=== PATIENT | female | born 1940 | race Two or more races ===

== ENCOUNTER 2021-06-22 00:17 | Inpatient (IN) | payer OTHER ==
[~2021-06-22] VITALS: Ht 162.6 cm; Wt 55.3 kg
[~2021-06-22 00:17] MED LIST: DRAMAMINE LESS25 MG; HYDRALAZINE HCL25 MG PO; HYDRALAZINE HCL50 MG; ISOSORBIDE DINI30 MG PO; MECLIZINE HCL25 MG PO; METOPROLOL ER-1 EAC1; NORVASC2.5 M1; TOPROL XL50 M1; TOPROL XL50 M1 PO
[2021-06-22] MEDS ORDERED: HYDROCHLOROTH12.5 MG (00:30)
[2021-06-22] MEDS ORDERED: AMLODIPINE BESY10 MG (15:30)
[2021-06-22] MEDS ORDERED: ATORVASTATIN CA40 MG (15:30)
[2021-06-22] MEDS ORDERED: ST. JOSEPH ASPI81 M2 (15:30)
== END 2021-06-30 17:23 | disposition home or self-care (01) | DRG 280 ==
LOC: ER 00:17 → MEDI 08:31 → SEC-K 08:31 → MEDI 10:52
PROVIDERS: ADMIT Internal Medicine; ATTEND Internal Medicine
PROC: 4A12X4Z Monitoring of Cardiac Electrical Activity, External Approach (ICD-10-PCS; principal; 2021-06-22)
PROC: B24BZZZ Ultrasonography of Heart with Aorta (ICD-10-PCS; 2021-06-23)
DX: I13.2 Hypertensive heart and chronic kidney disease with heart failure and with stage 5 chronic kidney disease, or end stage renal disease (principal); I50.23 Acute on chronic systolic (congestive) heart failure; I21.4 Non-ST elevation (NSTEMI) myocardial infarction; N18.5 Chronic kidney disease, stage 5; N17.8 Other acute kidney failure; I16.9 Hypertensive crisis, unspecified; R09.02 Hypoxemia; R06.02 Shortness of breath; I12.0 Hypertensive chronic kidney disease with stage 5 chronic kidney disease or end stage renal disease; D63.1 Anemia in chronic kidney disease; R79.89 Other specified abnormal findings of blood chemistry; I25.10 Atherosclerotic heart disease of native coronary artery without angina pectoris; Z20.822 Contact with and (suspected) exposure to COVID-19

== ENCOUNTER 2021-07-07 15:51 | Inpatient (IN) | payer OTHER ==
[~2021-07-07] VITALS: Ht 152.4 cm; Wt 47.6 kg
[~2021-07-07 15:51] MED LIST changes: +AMLODIPINE BESY10 MG; +ATORVASTATIN CA40 MG; +HYDROCHLOROTH12.5 MG; +ST. JOSEPH ASPI81 M2
== END 2021-07-29 12:14 | disposition home or self-care (01) | DRG 280 ==
LOC: ER 15:51 → MEDI 20:49 → MEDJ 20:49 → MEDI 07-08 09:43 → MEDJ 07-17 14:09
PROVIDERS: Radiology Vascular & Interventional Radiology; ADMIT Internal Medicine; ATTEND Internal Medicine
PROC: BW28ZZZ Computerized Tomography (CT Scan) of Head (ICD-10-PCS; 2021-07-07)
PROC: 4A12X4Z Monitoring of Cardiac Electrical Activity, External Approach (ICD-10-PCS; 2021-07-08)
PROC: 05HM33Z Insertion of Infusion Device into Right Internal Jugular Vein, Percutaneous Approach (ICD-10-PCS; principal; 2021-07-11 17:00)
PROC: B54PZZZ Ultrasonography of Bilateral Upper Extremity Veins (ICD-10-PCS; 2021-07-12)
PROC: 5A1D70Z Performance of Urinary Filtration, Intermittent, Less than 6 Hours Per Day (ICD-10-PCS; 2021-07-17)
PROC: 5A1D70Z Performance of Urinary Filtration, Intermittent, Less than 6 Hours Per Day (ICD-10-PCS; 2021-07-19)
PROC: 02HV33Z Insertion of Infusion Device into Superior Vena Cava, Percutaneous Approach (ICD-10-PCS; 2021-07-19)
PROC: BW24ZZZ Computerized Tomography (CT Scan) of Chest and Abdomen (ICD-10-PCS; 2021-07-19)
PROC: 30233N1 Transfusion of Nonautologous Red Blood Cells into Peripheral Vein, Percutaneous Approach (ICD-10-PCS; 2021-07-21)
PROC: 0W9B3ZX Drainage of Left Pleural Cavity, Percutaneous Approach, Diagnostic (ICD-10-PCS; 2021-07-24)
PROC: 0W993ZX Drainage of Right Pleural Cavity, Percutaneous Approach, Diagnostic (ICD-10-PCS; 2021-07-28)
PROC: 5A1D70Z Performance of Urinary Filtration, Intermittent, Less than 6 Hours Per Day (ICD-10-PCS; 2021-07-29)
DX: I11.0 Hypertensive heart disease with heart failure (principal); I50.23 Acute on chronic systolic (congestive) heart failure; I21.4 Non-ST elevation (NSTEMI) myocardial infarction; N18.6 End stage renal disease; J90 Pleural effusion, not elsewhere classified; J81.1 Chronic pulmonary edema; I25.5 Ischemic cardiomyopathy; R09.02 Hypoxemia; R06.02 Shortness of breath; R10.13 Epigastric pain; K59.09 Other constipation; I12.0 Hypertensive chronic kidney disease with stage 5 chronic kidney disease or end stage renal disease; D63.1 Anemia in chronic kidney disease; E11.22 Type 2 diabetes mellitus with diabetic chronic kidney disease; Z99.2 Dependence on renal dialysis; Z79.4 Long term (current) use of insulin; I25.10 Atherosclerotic heart disease of native coronary artery without angina pectoris; Z20.822 Contact with and (suspected) exposure to COVID-19; F03.90 Unspecified dementia, unspecified severity, without behavioral disturbance, psychotic disturbance, mood disturbance, and anxiety

== ENCOUNTER 2023-01-04 14:01 | Inpatient (IN) | payer OTHER ==
[~2023-01-04] VITALS: Ht 152.4 cm; Wt 49.9 kg
[2023-01-04 15:49] LABS: HEMATOCRIT 32.4 % (36.0-45.00); HEMOGLOBIN 10.4 g/dL (12.0-15.00); MEAN CELL VOLUME 95.4 fL (80.00-100.00); MEAN CORPUSCULAR HEMOGLOBIN 30.8 pg (27.00-32.0); MEAN CORPUSCULAR HGB CONC 32.3 g/dl (32.0-36.0); PLATELET COUNT 158 K/uL (150-450); RED BLOOD COUNT 3.39 M/uL (4.00-6.00); RED CELL DISTRIBUTION WIDTH 18.4 % (11.5-14.5)
[2023-01-04 16:16] LABS: ALBUMIN 3.5 gm/dL (3.4-5.0); BILIRUBIN TOTAL 0.47 mg/dL (0.3-1.2); CALCIUM 8.8 mg/dL (8.5-10.1); GFR 4.87; GLOBULINA 3.5 G/DL (2.4-3.5); POTASSIUM 4.06 mEq/L (3.5-5.1)
[2023-01-04 16:30] LABS: CREATININE SERUM 7.93 mg/dL (0.55-1.02)
[2023-01-05 08:39] LABS: URINE APPEARANCE CLOUDY; URINE BILIRRUBIN SMALL (NEGATIVE); URINE COLOR RED; URINE GLUCOSE NEGATIVE (NEGATIVE)
[2023-01-05 08:40] LABS: PH,URINE 5.5 (5.0-8.0); URINE BLOOD LARGE; URINE LEUKOCYTE MODERATE; URINE NITRATE NEGATIVE; URINE PROTEIN 300 (NEGATIVE); URINE RBC > 10558.9 uL (0.0-20.8); URINE UROBILINOGEN 0.2 E.U./dl
[2023-01-05 08:41] LABS: URINE BACTERIA 18.31 uL (0.0-1933)
[2023-01-06 13:53] LABS: ALBUMIN 2.9 gm/dL (3.4-5.0); BILIRUBIN TOTAL 0.62 mg/dL (0.3-1.2); BILIRUBIN,CONJUGATED 0.27 mg/dL (0.0-0.2); BILIRUBIN,UNCONJUGATED 0.35 mg/dL (0.0-0.6); CALCIUM 9.1 mg/dL (8.5-10.1); GLOBULINA 3.3 G/DL (2.4-3.5); POTASSIUM 5.08 mEq/L (3.5-5.1); TOTAL PROTEIN 6.2 gm/dL (6.4-8.2)
[2023-01-06 14:06] LABS: CHOL HDL RATIO 12.1 (0-5.0); GFR 5.97
[2023-01-06 14:07] LABS: CREATININE SERUM 6.64 mg/dL (0.55-1.02)
[2023-01-06 14:13] LABS: HEMATOCRIT 30.3 % (36.0-45.00); HEMOGLOBIN 9.9 g/dL (12.0-15.00); MEAN CELL VOLUME 94.9 fL (80.00-100.00); MEAN CORPUSCULAR HEMOGLOBIN 31.1 pg (27.00-32.0); MEAN CORPUSCULAR HGB CONC 32.8 g/dl (32.0-36.0); RED BLOOD COUNT 3.19 M/uL (4.00-6.00)
[2023-01-06 14:22] LABS: ERYTHROCYTE SEDIMENTATION RATE 87 mm/hr
[2023-01-06 14:24] LABS: INR 1.42; PROTHROMBIN TIME 14.5 SECONDS (9.0-11.5)
[2023-01-06 14:25] LABS: C-REACTIVE PROTEIN 22.2 MG/DL (0.00-0.29)
[2023-01-06 14:29] LABS: PARTIAL THROMBOPLASTIN TIME 43.9 SECONDS (22.0-34.0)
[2023-01-06 15:01] LABS: PLATELET COUNT 97 K/uL (150-450)
[2023-01-07] MEDS ORDERED: FUROSEMIDE40 MG (10:26)
[2023-01-07 14:50] LABS: ABG PH 7.454 (7.35-7.45); ABG PO2 67.7 mmHg (80-100); ABG pCO2 32.8 mmHg (35-45); BASE EXCESS -0.5 mmol/l; BICARBONATE 22.5 mmol/l (23-25); SaO2 94.2 %; Tco2 23.5 mmol/l
[2023-01-07 14:51] LABS: allen test SATISFACTORY; o2 100 %; puncture site RADIAL RIGHT
[2023-01-07 23:24] LABS: ABG PH 7.453 (7.35-7.45); ABG PO2 71.1 mmHg (80-100); ABG pCO2 30.2 mmHg (35-45)
[2023-01-07 23:25] LABS: BASE EXCESS -2.1 mmol/l; BICARBONATE 20.6 mmol/l (23-25); SaO2 94.8 %; Tco2 21.6 mmol/l; allen test SATISFACTORY; o2 36 %; puncture site RADIAL RIGHT
[2023-01-08 11:10] LABS: HEMATOCRIT 29.4 % (36.0-45.00); HEMOGLOBIN 9.5 g/dL (12.0-15.00); MEAN CELL VOLUME 93.7 fL (80.00-100.00); MEAN CORPUSCULAR HEMOGLOBIN 30.3 pg (27.00-32.0); MEAN CORPUSCULAR HGB CONC 32.3 g/dl (32.0-36.0); RED BLOOD COUNT 3.14 M/uL (4.00-6.00); RED CELL DISTRIBUTION WIDTH 18.3 % (11.5-14.5)
[2023-01-08 11:59] LABS: PLATELET COUNT 56 K/uL (150-450)
[2023-01-08 12:06] LABS: ALBUMIN 2.8 gm/dL (3.4-5.0); BILIRUBIN TOTAL 3.01 mg/dL (0.3-1.2); CALCIUM 8.7 mg/dL (8.5-10.1); GFR 7.94; GLOBULINA 2.9 G/DL (2.4-3.5); POTASSIUM 4.24 mEq/L (3.5-5.1); TOTAL PROTEIN 5.7 gm/dL (6.4-8.2)
[2023-01-08 12:26] LABS: CREATININE SERUM 5.19 mg/dL (0.55-1.02)
[2023-01-09 21:00] LABS: D DIMER 1.71 MG/L; INR 2.1
[2023-01-09 21:02] LABS: PARTIAL THROMBOPLASTIN TIME 48.8 SECONDS (22.0-34.0)
[2023-01-09 21:03] LABS: PROTHROMBIN TIME 20.9 SECONDS (9.0-11.5)
[2023-01-10 06:14] LABS: HEMATOCRIT 26.4 % (36.0-45.00); MEAN CELL VOLUME 91.7 fL (80.00-100.00); MEAN CORPUSCULAR HGB CONC 33.3 g/dl (32.0-36.0); RED BLOOD COUNT 2.88 M/uL (4.00-6.00); RED CELL DISTRIBUTION WIDTH 18.1 % (11.5-14.5)
[2023-01-10 06:53] LABS: ALBUMIN 2.5 gm/dL (3.4-5.0); CALCIUM 8.8 mg/dL (8.5-10.1); CREATININE SERUM 3.76 mg/dL (0.55-1.02); GFR 11.51; PHOSPHOROUS 5.7 mg/dL (2.5-4.9); POTASSIUM 4.05 mEq/L (3.5-5.1)
[2023-01-10 08:09] LABS: MEAN CORPUSCULAR HEMOGLOBIN 30.5 pg (27.00-32.0)
[2023-01-10 08:11] LABS: HEMOGLOBIN 8.8 g/dL (12.0-15.00)
[2023-01-10 08:13] LABS: PLATELET COUNT 41 K/uL (150-450)
[2023-01-11 20:55] LABS: HEMATOCRIT 38.2 % (36.0-45.00); HEMOGLOBIN 13.2 g/dL (12.0-15.00); MEAN CELL VOLUME 90.5 fL (80.00-100.00); MEAN CORPUSCULAR HEMOGLOBIN 31.2 pg (27.00-32.0); MEAN CORPUSCULAR HGB CONC 34.5 g/dl (32.0-36.0); RED BLOOD COUNT 4.22 M/uL (4.00-6.00); RED CELL DISTRIBUTION WIDTH 16.7 % (11.5-14.5)
[2023-01-11 20:58] LABS: PLATELET COUNT 65 K/uL (150-450)
[2023-01-12 11:22] LABS: ABG PH 7.335 (7.35-7.45); ABG PO2 116.7 mmHg (80-100)
[2023-01-12 11:23] LABS: BASE EXCESS -3.4 mmol/l; BICARBONATE 22.4 mmol/l (23-25); SaO2 98.1 %; Tco2 23.7 mmol/l
[2023-01-12 11:31] LABS: allen test SATISFACTORY; o2 50 %; puncture site RADIAL RIGHT
[2023-01-13 10:02] LABS: HEMATOCRIT 34.9 % (36.0-45.00); HEMOGLOBIN 11.9 g/dL (12.0-15.00); MEAN CELL VOLUME 88.6 fL (80.00-100.00); MEAN CORPUSCULAR HEMOGLOBIN 30.3 pg (27.00-32.0); MEAN CORPUSCULAR HGB CONC 34.2 g/dl (32.0-36.0); RED BLOOD COUNT 3.94 M/uL (4.00-6.00); RED CELL DISTRIBUTION WIDTH 17.8 % (11.5-14.5)
[2023-01-13 10:05] LABS: PLATELET COUNT 63 K/uL (150-450)
[2023-01-13 10:41] LABS: ALBUMIN 2.4 gm/dL (3.4-5.0); BILIRUBIN TOTAL 6.47 mg/dL (0.3-1.2); CALCIUM 9.1 mg/dL (8.5-10.1); GFR 8.54; GLOBULINA 2.8 G/DL (2.4-3.5); POTASSIUM 4.61 mEq/L (3.5-5.1); TOTAL PROTEIN 5.2 gm/dL (6.4-8.2)
[2023-01-13 10:44] LABS: CREATININE SERUM 4.87 mg/dL (0.55-1.02)
[2023-01-13 15:20] LABS: ABG PH 7.343 (7.35-7.45); ABG PO2 93.6 mmHg (80-100); BASE EXCESS -5.8 mmol/l; BICARBONATE 19.1 mmol/l (23-25); SaO2 96.5 %; Tco2 20.2 mmol/l; o2 50 %
[2023-01-13 15:21] LABS: allen test SATISFACTORY; puncture site RADIAL RIGHT
[2023-01-14 03:36] LABS: INR 1.8
[2023-01-14 04:13] LABS: PARTIAL THROMBOPLASTIN TIME 38.2 SECONDS (22.0-34.0); PROTHROMBIN TIME 18.1 SECONDS (9.0-11.5)
[2023-01-16 06:26] LABS: HEMOGLOBIN 12.9 g/dL (12.0-15.00); MEAN CELL VOLUME 91.6 fL (80.00-100.00); MEAN CORPUSCULAR HEMOGLOBIN 31.1 pg (27.00-32.0); RED BLOOD COUNT 4.15 M/uL (4.00-6.00); RED CELL DISTRIBUTION WIDTH 17.7 % (11.5-14.5)
[2023-01-16 06:58] LABS: ALBUMIN 2.3 gm/dL (3.4-5.0); BILIRUBIN TOTAL 5.77 mg/dL (0.3-1.2); CALCIUM 8.3 mg/dL (8.5-10.1); GFR 8.44; GLOBULINA 2.9 G/DL (2.4-3.5); POTASSIUM 5.5 mEq/L (3.5-5.1); TOTAL PROTEIN 5.2 gm/dL (6.4-8.2)
[2023-01-16 07:35] LABS: PLATELET COUNT 109 K/uL (150-450)
[2023-01-16 07:45] LABS: CREATININE SERUM 4.92 mg/dL (0.55-1.02)
[2023-01-18 20:23] LABS: ABG PO2 67.5 mmHg (80-100); ABG pCO2 35.4 mmHg (35-45); BICARBONATE 21.9 mmol/l (23-25); SaO2 93.2 %
[2023-01-18 20:24] LABS: allen test SATISFACTORY; o2 21 %; puncture site RADIAL RIGHT
[2023-01-20 09:16] LABS: ALBUMIN 1.6 gm/dL (3.4-5.0); BILIRUBIN TOTAL 3.86 mg/dL (0.3-1.2); GLOBULINA 2.7 G/DL (2.4-3.5); TOTAL PROTEIN 4.3 gm/dL (6.4-8.2)
[2023-01-20 09:46] LABS: CREATININE SERUM 4.82 mg/dL (0.55-1.02); GFR 8.64
[2023-01-20 09:47] LABS: POTASSIUM 6.01 mEq/L (3.5-5.1)
[2023-01-20 10:08] LABS: HEMATOCRIT 39.6 % (36.0-45.00); HEMOGLOBIN 13.3 g/dL (12.0-15.00); MEAN CELL VOLUME 93.4 fL (80.00-100.00); MEAN CORPUSCULAR HEMOGLOBIN 31.3 pg (27.00-32.0); MEAN CORPUSCULAR HGB CONC 33.6 g/dl (32.0-36.0); RED BLOOD COUNT 4.24 M/uL (4.00-6.00); RED CELL DISTRIBUTION WIDTH 19.8 % (11.5-14.5)
[2023-01-20 10:17] LABS: PLATELET COUNT 30 K/uL (150-450)
[2023-01-20 14:41] LABS: ALBUMIN 1.8 gm/dL (3.4-5.0); BILIRUBIN TOTAL 4.14 mg/dL (0.3-1.2); CALCIUM 8.1 mg/dL (8.5-10.1); GFR 8.64; GLOBULINA 2.8 G/DL (2.4-3.5); POTASSIUM 5.89 mEq/L (3.5-5.1); TOTAL PROTEIN 4.6 gm/dL (6.4-8.2)
[2023-01-20 15:15] LABS: CREATININE SERUM 4.82 mg/dL (0.55-1.02)
[2023-01-21 07:15] LABS: ALBUMIN 1.9 gm/dL (3.4-5.0); BILIRUBIN TOTAL 4.39 mg/dL (0.3-1.2); CALCIUM 8.1 mg/dL (8.5-10.1); GLOBULINA 2.9 G/DL (2.4-3.5); TOTAL PROTEIN 4.8 gm/dL (6.4-8.2)
[2023-01-21 07:27] LABS: HEMATOCRIT 40.1 % (36.0-45.00); HEMOGLOBIN 13.5 g/dL (12.0-15.00); MEAN CELL VOLUME 94.7 fL (80.00-100.00); MEAN CORPUSCULAR HEMOGLOBIN 31.9 pg (27.00-32.0); MEAN CORPUSCULAR HGB CONC 33.7 g/dl (32.0-36.0); RED BLOOD COUNT 4.24 M/uL (4.00-6.00); RED CELL DISTRIBUTION WIDTH 20.9 % (11.5-14.5)
[2023-01-21 07:43] LABS: ERYTHROCYTE SEDIMENTATION RATE 45 mm/hr
[2023-01-21 08:21] LABS: D DIMER 1.79 MG/L
[2023-01-21 09:14] LABS: PLATELET COUNT 40 K/uL (150-450)
[2023-01-21 09:22] LABS: GFR 7.42
[2023-01-21 09:24] LABS: CREATININE SERUM 5.5 mg/dL (0.55-1.02); POTASSIUM 6.59 mEq/L (3.5-5.1)
[2023-01-21 09:38] LABS: C-REACTIVE PROTEIN 12.4 MG/DL (0.00-0.29)
[2023-01-22 07:11] LABS: ALBUMIN 1.7 gm/dL (3.4-5.0); CALCIUM 7.9 mg/dL (8.5-10.1); GFR 8.56; PHOSPHOROUS 6.6 mg/dL (2.5-4.9); POTASSIUM 5.31 mEq/L (3.5-5.1)
[2023-01-22 08:50] LABS: CREATININE SERUM 4.86 mg/dL (0.55-1.02)
[2023-01-22 15:05] LABS: URINE BLOOD LARGE; URINE LEUKOCYTE SMALL; URINE NITRATE POSITIVE
[2023-01-22 15:06] LABS: URINE APPEARANCE BLOODY; URINE BILIRRUBIN LARGE (NEGATIVE); URINE COLOR RED; URINE GLUCOSE 100 MG/DL (NEGATIVE); URINE PROTEIN >=300 (NEGATIVE)
[2023-01-22 15:08] LABS: URINE RBC LOADED /HPF
[2023-01-22 15:09] LABS: URINE BACTERIA MANY; URINE CRYSTALS NEGATIVE /HPF; URINE MUCUS SCANT
[2023-01-23 12:31] LABS: HEMATOCRIT 38.6 % (36.0-45.00); HEMOGLOBIN 12.7 g/dL (12.0-15.00); MEAN CELL VOLUME 94.1 fL (80.00-100.00); MEAN CORPUSCULAR HGB CONC 32.9 g/dl (32.0-36.0); RED CELL DISTRIBUTION WIDTH 20.6 % (11.5-14.5)
[2023-01-23 12:58] LABS: ALBUMIN 1.7 gm/dL (3.4-5.0); BILIRUBIN TOTAL 3.06 mg/dL (0.3-1.2); GLOBULINA 2.6 G/DL (2.4-3.5); TOTAL PROTEIN 4.3 gm/dL (6.4-8.2)
[2023-01-23 13:23] LABS: PLATELET COUNT 73 K/uL (150-450)
[2023-01-23 13:29] LABS: GFR 7.44
[2023-01-23 13:31] LABS: CREATININE SERUM 5.49 mg/dL (0.55-1.02); POTASSIUM 6.2 mEq/L (3.5-5.1)
[2023-01-26 14:08] LABS: HEMATOCRIT 38.1 % (36.0-45.00); HEMOGLOBIN 12.2 g/dL (12.0-15.00); MEAN CELL VOLUME 95.2 fL (80.00-100.00); MEAN CORPUSCULAR HEMOGLOBIN 30.5 pg (27.00-32.0); RED BLOOD COUNT 4.01 M/uL (4.00-6.00)
[2023-01-26 14:19] LABS: PLATELET COUNT 76 K/uL (150-450)
[2023-01-26 14:20] LABS: ALBUMIN 1.5 gm/dL (3.4-5.0); BILIRUBIN TOTAL 2.71 mg/dL (0.3-1.2); BILIRUBIN,CONJUGATED 2.01 mg/dL (0.0-0.2); BILIRUBIN,UNCONJUGATED 0.7 mg/dL (0.0-0.6); CALCIUM 7.7 mg/dL (8.5-10.1); GFR 7.78; GLOBULINA 2.5 G/DL (2.4-3.5); POTASSIUM 5.11 mEq/L (3.5-5.1)
[2023-01-26 14:46] LABS: CREATININE SERUM 5.28 mg/dL (0.55-1.02)
[2023-01-27 11:19] LABS: ABG PH 7.288 (7.35-7.45); ABG PO2 88.1 mmHg (80-100); ABG pCO2 27.9 mmHg (35-45); SaO2 94.9 %
[2023-01-27 11:20] LABS: BASE EXCESS -11.9 mmol/l; Tco2 13.9 mmol/l; allen test SATISFACTORY; o2 100 %; puncture site RADIAL RIGHT
[2023-01-27 14:14] LABS: ABG PH 7.269 (7.35-7.45); ABG pCO2 30.2 mmHg (35-45); BASE EXCESS -11.9 mmol/l; BICARBONATE 13.5 mmol/l (23-25); SaO2 98.9 %; Tco2 14.5 mmol/l
[2023-01-27 14:15] LABS: allen test SATISFACTORY; o2 100 %; puncture site RADIAL RIGHT
== END 2023-01-27 19:42 | disposition expired | DRG 682 ==
LOC: ER 14:01 → MEDI 22:35 → MEDJ 01-05 01:42 → ICU 01-12 14:45 → MEDI 01-16 18:20 → ICU 01-16 18:21 → MEDI 01-16 20:06
PROVIDERS: Emergency Medicine; General Practice; Internal Medicine; Internal Medicine Hematology & Oncology; Internal Medicine Infectious Disease; Specialist; Specialist/Technologist, Other Nephrology; Student in an Organized Health Care Education/Training Program; ADMIT Internal Medicine; ATTEND Internal Medicine
PROC: BW21ZZZ Computerized Tomography (CT Scan) of Abdomen and Pelvis (ICD-10-PCS; 2023-01-04)
PROC: 3E0F7GC Introduction of Other Therapeutic Substance into Respiratory Tract, Via Natural or Artificial Opening (ICD-10-PCS; 2023-01-06)
PROC: 4A12X4Z Monitoring of Cardiac Electrical Activity, External Approach (ICD-10-PCS; 2023-01-07)
PROC: 5A1D70Z Performance of Urinary Filtration, Intermittent, Less than 6 Hours Per Day (ICD-10-PCS; 2023-01-07)
PROC: 5A1D70Z Performance of Urinary Filtration, Intermittent, Less than 6 Hours Per Day (ICD-10-PCS; 2023-01-09)
PROC: B020ZZZ Computerized Tomography (CT Scan) of Brain (ICD-10-PCS; 2023-01-11)
PROC: 30233N1 Transfusion of Nonautologous Red Blood Cells into Peripheral Vein, Percutaneous Approach (ICD-10-PCS; 2023-01-11)
PROC: 5A1D70Z Performance of Urinary Filtration, Intermittent, Less than 6 Hours Per Day (ICD-10-PCS; 2023-01-11)
PROC: 0D9670Z Drainage of Stomach with Drainage Device, Via Natural or Artificial Opening (ICD-10-PCS; principal; 2023-01-13)
PROC: 3E0G76Z Introduction of Nutritional Substance into Upper GI, Via Natural or Artificial Opening (ICD-10-PCS; 2023-01-13)
PROC: B24BYZZ Ultrasonography of Heart with Aorta using Other Contrast (ICD-10-PCS; 2023-01-13)
PROC: 5A1D70Z Performance of Urinary Filtration, Intermittent, Less than 6 Hours Per Day (ICD-10-PCS; 2023-01-16)
PROC: 5A1D70Z Performance of Urinary Filtration, Intermittent, Less than 6 Hours Per Day (ICD-10-PCS; 2023-01-18)
PROC: 5A1D70Z Performance of Urinary Filtration, Intermittent, Less than 6 Hours Per Day (ICD-10-PCS; 2023-01-23)
PROC: BW40ZZZ Ultrasonography of Abdomen (ICD-10-PCS; 2023-01-26)
PROC: 5A12012 Performance of Cardiac Output, Single, Manual (ICD-10-PCS; 2023-01-27)
PROC: 5A09357 Assistance with Respiratory Ventilation, Less than 24 Consecutive Hours, Continuous Positive Airway Pressure (ICD-10-PCS; 2023-01-27)
DX: I12.0 Hypertensive chronic kidney disease with stage 5 chronic kidney disease or end stage renal disease (principal); A41.9 Sepsis, unspecified organism; J18.9 Pneumonia, unspecified organism; N18.6 End stage renal disease; I50.23 Acute on chronic systolic (congestive) heart failure; J96.91 Respiratory failure, unspecified with hypoxia; R65.21 Severe sepsis with septic shock; N39.0 Urinary tract infection, site not specified; E87.1 Hypo-osmolality and hyponatremia; D84.9 Immunodeficiency, unspecified; Z99.2 Dependence on renal dialysis; K52.9 Noninfective gastroenteritis and colitis, unspecified; I11.0 Hypertensive heart disease with heart failure; D63.1 Anemia in chronic kidney disease; D69.6 Thrombocytopenia, unspecified; I50.84 End stage heart failure; I48.91 Unspecified atrial fibrillation